=== PATIENT | female | born 1980 | race African-American/Black ===

== ENCOUNTER 2018-09-17 13:41 | Emergency (ER) | payer OTHER ==
--- NOTE | 2018-09-17 14:22 | ER ---
Nurse's Notes [facility] Name: Lima Mcbride Age: 37 yrs Sex: Female : 1980 Arrival Date: 09/17/2018 Time: 13:46 Bed 17 Private MD: Diagnosis: Essential (primary) hypertension Presentation: 09/17 14:03 Presenting complaint: Patient states: i went to urgent care for a blister on my foot tw2 and they wouldn't treat me because my pressure was too high. Transition of care: patient was not received from another setting of care. Onset of symptoms was September 17, 2018. Risk Assessment: Do you want to hurt yourself or someone else? Patient reports no desire to harm self or others. Initial Sepsis Screen: Does the patient meet any 2 criteria? No. Patient's initial sepsis screen is negative. Does the patient have a suspected source of infection? No. Patient's initial sepsis screen is negative. Care prior to arrival: None. 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 tw2 Historical: - Allergies: 14:30 No Known Allergies; tw2 - Home Meds: 14:05 losartan oral oral [Active]; tw2 - PMHx: 14:05 Hypertension; tw2 - PSHx: 14:05 ; tw2 - Immunization history:: Adult Immunizations. - Social history:: Smoking status: . - Ebola Screening: : Patient negative for fever greater than or equal to 101.5 degrees Fahrenheit, and additional compatible Ebola Virus Disease symptoms. Screenin:06 Abuse screen: Denies threats or abuse. Nutritional screening: No deficits noted. tw2 Tuberculosis screening: No symptoms or risk factors identified. Fall Risk None identified. Assessment: 14:06 General: Appears in no apparent distress. obese, Behavior is calm, cooperative, tw2 appropriate for age. Pain: Denies pain. Neuro: Level of Consciousness is awake, alert, obeys commands, Oriented to person, place, time, situation. Cardiovascular: Denies chest pain, shortness of breath, Heart tones S1 S2 Capillary refill < 3 seconds Patient's skin is warm and dry. Respiratory: Airway is patent Respiratory effort is even, unlabored, Respiratory pattern is regular, symmetrical, Breath sounds are clear bilaterally. GI: No signs and/or symptoms were reported involving the gastrointestinal system. Abdomen is round non-distended, obese, Bowel sounds present X 4 quads. : No signs and/or symptoms were reported regarding the genitourinary system. EENT: No signs and/or symptoms were reported regarding the EENT system. Derm: No signs and/or symptoms reported regarding the dermatologic system. Musculoskeletal: Circulation, motion, and sensation intact. Range of motion: intact in all extremities. 14:30 Reassessment: Patient appears in no apparent distress at this time. No changes from tw2 previously documented assessment. Patient and/or family updated on plan of care and expected duration. Pain level reassessed. Patient is alert, oriented x 3, equal unlabored respirations, skin warm/dry/pink. 14:30 Reassessment: per Dr. Villatoro no need to retake pts BP, pt reports being on Labetalol in tw2 the past. Vital Signs: 14:04 BP 164 / 117; Pulse 95; Resp 17; Temp 99.7(O); Pulse Ox 99% on R/A; Pain 0/10; tw2 ED Course: 13:46 Patient arrived in ED. mr 14:02 Armando Villatoro MD is Attending Physician. 14:03 Kathi Jacob RN is Primary Nurse. tw2 14:04 Triage completed. tw2 14:06 Bed in low position. Call light in reach. court recording monitor on. Pulse ox on. NIBP on. tw2 14:06 Arm band placed on. tw2 14:31 No provider procedures requiring assistance completed. Patient did not have IV access tw2 during this emergency room visit. Administered Medications: 14:29 Drug: Labetalol 50 mg Route: PO; tw2 14:32 Follow up: Response: No adverse reaction tw2 Outcome: 14:21 Discharge ordered by . gs 14:31 Discharged to home ambulatory. tw2 14:31 Condition: stable 14:31 Discharge instructions given to patient, Instructed on discharge instructions, follow up and referral plans. medication usage, Demonstrated understanding of instructions, follow-up care, medications, Prescriptions given X 1. 14:37 Patient left the ED. tw2 Signatures: Aidee Barry mr aKthi Jacob, AYDIN RN tw2 Armando Villatoro MD MD
--- NOTE | 2018-09-17 14:22 | EDPHYS ---
Physician Documentation [facility] Name: Lima Mcbride Age: 37 yrs Sex: Female : 1980 Arrival Date: 09/17/2018 Time: 13:46 Bed 17 Private MD: ED Physician Armando Villatoro HPI: 09/17 14:18 This 37 yrs old Black Female presents to ER via Ambulatory with complaints of High gs Blood Pressure. 14:18 The patient has elevated blood pressure and discovered this at home. Onset: The gs symptoms/episode began/occurred 1 month(s) ago. Modifying factors: The symptoms are aggravated by activity. Associated signs and symptoms: Pertinent negatives: dizziness, headache. Severity of symptoms: At its worst the blood pressure was severe, in the emergency department the blood pressure is unchanged. The patient has experienced similar episodes in the past, multiple times. The patient has been recently seen by a physician: the patient's primary care provider, yesterday, with similar presenting complaints. OFF MEDS SEVERAL MONTHS. 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 tw2 Historical: - Allergies: 14:30 No Known Allergies; tw2 - Home Meds: 14:05 losartan oral oral [Active]; tw2 - PMHx: 14:05 Hypertension; tw2 - PSHx: 14:05 ; tw2 - Immunization history:: Adult Immunizations. - Social history:: Smoking status: . - Ebola Screening: : Patient negative for fever greater than or equal to 101.5 degrees Fahrenheit, and additional compatible Ebola Virus Disease symptoms. ROS: 14:18 All other systems are negative. gs Exam: 14:18 Head/Face: Normocephalic, atraumatic. Eyes: Pupils equal round and reactive to light, gs extra-ocular motions intact. Lids and lashes normal. Conjunctiva and sclera are non-icteric and not injected. Cornea within normal limits. Periorbital areas with no swelling, redness, or edema. ENT: Nares patent. No nasal discharge, no septal abnormalities noted. Tympanic membranes are normal and external auditory canals are clear. Oropharynx with no redness, swelling, or masses, exudates, or evidence of obstruction, uvula midline. Mucous membranes moist. Neck: Trachea midline, no thyromegaly or masses palpated, and no cervical lymphadenopathy. Supple, full range of motion without nuchal rigidity, or vertebral point tenderness. No Meningismus. Chest/axilla: Normal chest wall appearance and motion. Nontender with no deformity. No lesions are appreciated. Cardiovascular: Regular rate and rhythm with a normal S1 and S2. No gallops, murmurs, or rubs. Normal PMI, no JVD. No pulse deficits. Respiratory: Lungs have equal breath sounds bilaterally, clear to auscultation and percussion. No rales, rhonchi or wheezes noted. No increased work of breathing, no retractions or nasal flaring. Abdomen/GI: Soft, non-tender, with normal bowel sounds. No distension or tympany. No guarding or rebound. No evidence of tenderness throughout. Back: No spinal tenderness. No costovertebral tenderness. Full range of motion. Skin: Warm, dry with normal turgor. Normal color with no rashes, no lesions, and no evidence of cellulitis. MS/ Extremity: Pulses equal, no cyanosis. Neurovascular intact. Full, normal range of motion. Neuro: Awake and alert, GCS 15, oriented to person, place, time, and situation. Cranial nerves II-XII grossly intact. Motor strength 5/5 in all extremities. Sensory grossly intact. Cerebellar exam normal. Normal gait. 14:18 Constitutional: The patient appears alert, awake. Vital Signs: 14:04 BP 164 / 117; Pulse 95; Resp 17; Temp 99.7(O); Pulse Ox 99% on R/A; Pain 0/10; tw2 MDM: 14:17 Patient medically screened. 14:18 Differential diagnosis: hypertensive crisis, Malignant HTN. Data reviewed: vital signs, nurses notes. Response to treatment: There is no appreciated change of the patient's symptoms at this time, and as a result, I will discharge patient. Physician consultation: PCP WILL START LABETALOL. Administered Medications: 14:29 Drug: Labetalol 50 mg Route: PO; tw2 14:32 Follow up: Response: No adverse reaction tw2 Disposition: 09/17/18 14:21 Discharged to Home. Impression: Essential (primary) hypertension. - Condition is Stable. - Discharge Instructions: Hypertension. - Prescriptions for labetalol 100 mg Oral tablet - take 1 tablet by ORAL route 2 times per day; 30 tablet. - Work release form, Medication Reconciliation Form, Thank You Letter, Antibiotic Education, Prescription Opioid Use form. - Follow up: Private Physician; When: 1 - 2 days; Reason: Re-evaluation by your physician. Signatures: Kathi Jacob RN RN tw2 Armando Villatoro MD MD Corrections: (The following items were deleted from the chart) 14:37 14:21 09/17/2018 14:21 Discharged to Home. Impression: Essential (primary) tw2 hypertension. Condition is Stable. Forms are Medication Reconciliation Form, Thank You Letter, Antibiotic Education, Prescription Opioid Use. Follow up: Private Physician; When: 1 - 2 days; Reason: Re-evaluation by your physician. gs
[2018-09-17] MEDS ORDERED: LABETALOL HCL 100 MG TAB ONE (14:36)
== END 2018-09-17 14:37 | disposition home or self-care (01) ==
LOC: ER 13:41
DX: I10 Essential (primary) hypertension (principal)
CPT/HCPCS: 99284

== ENCOUNTER 2018-11-01 18:11 | Emergency (ER) | payer OTHER, SELFPAY ==
[2018-11-01] MEDS ORDERED: ACETAMINOPHEN 500 MG TAB ONE (19:01)
--- NOTE | 2018-11-01 20:23 | EDPHYS ---
Physician Documentation [facility] Name: Lima Mcbride Age: 37 yrs Sex: Female : 1980 Arrival Date: 11/01/2018 Time: 18:13 Bed 2 Private MD: ED Physician Herson Bonilla HPI: 11/01 23:04 This 37 yrs old Black Female presents to ER via Ambulatory with complaints of Flu snw Symptoms. 23:04 flu like symptoms. Onset: The symptoms/episode began/occurred suddenly, today. Severity snw of symptoms: At their worst the symptoms were moderate. The patient has not experienced similar symptoms in the past. It is unknown whether or not the patient has recently seen a physician. 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 - Social history:: Smoking status: unknown. - Ebola Screening: : Patient negative for fever greater than or equal to 101.5 degrees Fahrenheit, and additional compatible Ebola Virus Disease symptoms Patient denies exposure to infectious person Patient denies travel to an Ebola-affected area in the 21 days before illness onset. ROS: 23:07 Constitutional: Positive for fever, chills, bodyaches, and weight loss, Eyes: Negative snw for injury, pain, redness, and discharge, ENT: Negative for injury, pain, and discharge, Neck: Negative for injury, pain, and swelling, Cardiovascular: Negative for chest pain, palpitations, and edema, Respiratory: Negative for shortness of breath, wheezing, and pleuritic chest pain, + cough Abdomen/GI: Negative for abdominal pain, nausea, vomiting, diarrhea, and constipation, Back: Negative for injury and pain, : Negative for injury, bleeding, discharge, and swelling, MS/Extremity: Negative for injury and deformity, Skin: Negative for injury, rash, and discoloration, Neuro: Negative for headache, weakness, numbness, tingling, and seizure. Exam: 23:11 Head/Face: Normocephalic, atraumatic. Eyes: Pupils equal round and reactive to light, snw extra-ocular motions intact. Lids and lashes normal. Conjunctiva and sclera are non-icteric and not injected. Cornea within normal limits. Periorbital areas with no swelling, redness, or edema. ENT: Nares patent. No nasal discharge, no septal abnormalities noted. Tympanic membranes are normal and external auditory canals are clear. Oropharynx with no redness, swelling, or masses, exudates, or evidence of obstruction, uvula midline. Mucous membranes moist. Neck: Trachea midline, no thyromegaly or masses palpated, and no cervical lymphadenopathy. Supple, full range of motion without nuchal rigidity, or vertebral point tenderness. No Meningismus. Chest/axilla: Normal chest wall appearance and motion. Nontender with no deformity. No lesions are appreciated. Cardiovascular: Regular rate and rhythm with a normal S1 and S2. No gallops, murmurs, or rubs. Normal PMI, no JVD. No pulse deficits. Respiratory: Lungs have equal breath sounds bilaterally, clear to auscultation and percussion. No rales, rhonchi or wheezes noted. No increased work of breathing, no retractions or nasal flaring. Abdomen/GI: Soft, non-tender, with normal bowel sounds. No distension or tympany. No guarding or rebound. No evidence of tenderness throughout. Back: No spinal tenderness. No costovertebral tenderness. Full range of motion. Skin: Warm, dry with normal turgor. Normal color with no rashes, no lesions, and no evidence of cellulitis. MS/ Extremity: Pulses equal, no cyanosis. Neurovascular intact. Full, normal range of motion. Neuro: Awake and alert, GCS 15, oriented to person, place, time, and situation. Cranial nerves II-XII grossly intact. Motor strength 5/5 in all extremities. Sensory grossly intact. Cerebellar exam normal. Normal gait. Psych: Awake, alert, with orientation to person, place and time. Behavior, mood, and affect are within normal limits. 23:11 Constitutional: The patient appears alert, awake, febrile. Vital Signs: 18:15 BP 153 / 123; Pulse 104; Resp 18; Temp 102.1; Pulse Ox 100% ; Weight 138.35 kg; Height sv 5 ft. 2 in. (157.48 cm); Pain 10/10; 19:54 BP 170 / 89; Pulse 102; Resp 18; Pulse Ox 100% on R/A; oe 21:02 Resp 18; Temp 99.3(O); Pulse Ox 98% on R/A; ao 18:15 Body Mass Index 55.78 (138.35 kg, 157.48 cm) sv MDM: 19:23 Patient medically screened. snw 23:06 Data reviewed: vital signs, nurses notes. Data interpreted: Pulse oximetry: on room air snw is 98 %. Interpretation: normal. Counseling: I had a detailed discussion with the patient and/or guardian regarding: the historical points, exam findings, and any diagnostic results supporting the discharge/admit diagnosis, the presence of at least one elevated blood pressure reading (>120/80) during this emergency department visit, lab results, the need for outpatient follow up, to return to the emergency department if symptoms worsen or persist or if there are any questions or concerns that arise at home. Special discussion: I have referred the patient to see his PCP for further evaluation of high blood pressure. Based on the history and exam findings, there is no indication for further emergent testing or inpatient evaluation. I discussed with the patient/guardian the need to see the primary care provider for further evaluation of the symptoms. 11/01 18:23 Order name: Strep; Complete Time: 19:10 sv 11/01 18:23 Order name: Flu; Complete Time: 19:10 sv 11/01 18:52 Order name: Throat Culture EDMS 11/01 19:23 Order name: Recheck B/P; Complete Time: 19:57 snw Administered Medications: 18:52 Drug: Tylenol 1000 mg Route: PO; sv 20:50 Follow up: Response: No adverse reaction ao 20:50 Drug: Tamiflu 75 mg Route: PO; ao 20:50 Follow up: Response: No adverse reaction ao 20:50 Drug: Motrin 400 mg Route: PO; ao 20:51 Follow up: Response: No adverse reaction ao Disposition: 11/01/18 20:22 Discharged to Home. Impression: Influenza due to unidentified influenza virus, Essential (primary) hypertension. - Condition is Stable. - Discharge Instructions: Fever, Adult, Hypertension, Influenza, Adult, Rehydration, Adult, Managing Your Hypertension. - Prescriptions for Tylenol- Codeine #3 300-30 mg Oral Tablet - take 2 tablets by ORAL route every 6 hours As needed; 14 tablet. Tamiflu 75 mg Oral Capsule - take 1 tablet by ORAL route every 12 hours for 5 days; 10 tablet. - Work release form, Medication Reconciliation Form, Thank You Letter, Antibiotic Education, Prescription Opioid Use form. - Follow up: Private Physician; When: 2 - 3 days; Reason: Recheck today's complaints, Continuance of care, Re-evaluation by your physician. Follow up: Emergency Department; When: As needed; Reason: Worsening of condition. Addendum: 11/04/2018 06:50 Co-signature as Attending Physician, Herson Bonilla MD I agree with the assessment and k dr plan of care. Signatures: Dispatcher [employer] EDMS Patricia Bustamante, RN RN sv Herson Bonilla MD MD [facility] Tessa Cano, LARGE ANIMAL HUSBANDRY TECHNICIAN-C LARGE ANIMAL HUSBANDRY TECHNICIAN-Csnw Pawel Parekh, RN RN ao Corrections: (The following items were deleted from the chart) 11/01 21:03 20:22 11/01/2018 20:22 Discharged to Home. Impression: Influenza due to unidentified ao influenza virus; Essential (primary) hypertension. Condition is Stable. Forms are Medication Reconciliation Form, Thank You Letter, Antibiotic Education, Prescription Opioid Use. Follow up: Private Physician; When: 2 - 3 days; Reason: Recheck today's complaints, Continuance of care, Re-evaluation by your physician. Follow up: Emergency Department; When: As needed; Reason: Worsening of condition. snw
--- NOTE | 2018-11-01 20:23 | ER ---
Nurse's Notes [facility] Name: Lima Mcbride Age: 37 yrs Sex: Female : 1980 Arrival Date: 11/01/2018 Time: 18:13 Bed 2 Private MD: Diagnosis: Influenza due to unidentified influenza virus;Essential (primary) hypertension Presentation: 11/01 18:15 Presenting complaint: Patient states: body aches, chills, chest pain with cough, sv productive green sputum x 1 day. Transition of care: patient was not received from another setting of care. Onset of symptoms was October 31, 2018. Care prior to arrival: None. 18:15 Method Of Arrival: Ambulatory sv 18:15 Acuity: [place] 2 sv 20:00 Risk Assessment: Do you want to hurt yourself or someone else? Patient reports no ao desire to harm self or others. Initial Sepsis Screen: Does the patient meet any 2 criteria? No. Patient's initial sepsis screen is negative. Does the patient have a suspected source of infection? No. Patient's initial sepsis screen is negative. 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 - Social history:: Smoking status: unknown. - Ebola Screening: : Patient negative for fever greater than or equal to 101.5 degrees Fahrenheit, and additional compatible Ebola Virus Disease symptoms Patient denies exposure to infectious person Patient denies travel to an Ebola-affected area in the 21 days before illness onset. Screenin:59 Abuse screen: Denies threats or abuse. Denies injuries from another. Nutritional ao screening: No deficits noted. Tuberculosis screening: No symptoms or risk factors identified. Fall Risk None identified. Assessment: 19:57 General: Appears in no apparent distress. comfortable, Behavior is calm, cooperative, ao appropriate for age. Pain: Complains of pain in headache. Neuro: Level of Consciousness is awake, alert, obeys commands, Oriented to person, place, time, situation, Appropriate for age Moves all extremities. Full function Speech is normal, Facial symmetry appears normal. Cardiovascular: Capillary refill < 3 seconds Patient's skin is warm and dry. Respiratory: Airway is patent Respiratory effort is even, unlabored, Respiratory pattern is regular, symmetrical. GI: Abdomen is non-distended. : No signs and/or symptoms were reported regarding the genitourinary system. EENT: No signs and/or symptoms were reported regarding the EENT system. Derm: Skin is normal, Skin temperature is warm. Musculoskeletal: Circulation, motion, and sensation intact. Range of motion:. Vital Signs: 18:15 BP 153 / 123; Pulse 104; Resp 18; Temp 102.1; Pulse Ox 100% ; Weight 138.35 kg; Height sv 5 ft. 2 in. (157.48 cm); Pain 10/10; 19:54 BP 170 / 89; Pulse 102; Resp 18; Pulse Ox 100% on R/A; oe 21:02 Resp 18; Temp 99.3(O); Pulse Ox 98% on R/A; ao 18:15 Body Mass Index 55.78 (138.35 kg, 157.48 cm) sv ED Course: 18:13 Patient arrived in ED. as 18:15 Arm band placed on. sv 18:38 Tessa Cano FNP-C is PHCP. snw 18:38 Herson Bonilla MD is Attending Physician. snw 18:46 Triage completed. sv 18:52 Throat Culture Sent. sv 19:39 Pawel Parekh, RN is Primary Nurse. ao 20:00 Patient has correct armband on for positive identification. Pulse ox on. NIBP on. ao 21:01 No provider procedures requiring assistance completed. Patient did not have IV access ao during this emergency room visit. Administered Medications: 18:52 Drug: Tylenol 1000 mg Route: PO; sv 20:50 Follow up: Response: No adverse reaction ao 20:50 Drug: Tamiflu 75 mg Route: PO; ao 20:50 Follow up: Response: No adverse reaction ao 20:50 Drug: Motrin 400 mg Route: PO; ao 20:51 Follow up: Response: No adverse reaction ao Outcome: 20:22 Discharge ordered by . snw 21:01 Discharged to home ambulatory. ao 21:01 Condition: stable 21:01 Discharge instructions given to patient, Instructed on discharge instructions, follow up and referral plans. Demonstrated understanding of instructions, follow-up care, medications, Prescriptions given X 2. 21:03 Patient left the ED. ao Signatures: Patricia Bustamante, RN RN Tessa Parry, JALOUSIE INSTALLER-C JALOUSIE INSTALLER-Csnw Meghana Mendez Alex RN RN Douglas Leung Corrections: (The following items were deleted from the chart) 18:46 18:15 Acuity: [place] 3 sv eugenio
[2018-11-01] MEDS ORDERED: IBUPROFEN 400 MG TAB ONE (20:51)
[2018-11-01] MEDS ORDERED: OSELTAMIVIR 75 MG CAP ONE (20:51)
== END 2018-11-01 21:03 | disposition home or self-care (01) ==
LOC: ER 18:11
DX: J10.1 Influenza due to other identified influenza virus with other respiratory manifestations (principal); I10 Essential (primary) hypertension
CPT/HCPCS: 87070; 87081; 87804; 99284